=== PATIENT | female | born 1965 | race Caucasian/White ===

== ENCOUNTER 2019-09-10 00:14 | Outpatient (CLI) | payer BC, SELFPAY ==
[2019-09-10 17:31] LABS: SARS-CoV-2 RNA PCR Negative
== END 2019-09-10 00:15 | disposition home or self-care (01) ==
LOC: ANHCOVIDDT 00:15
PROVIDERS: PCP Family Medicine; Visit Provider Plastic Surgery
DX: Z01.812 Encounter for preprocedural laboratory examination (principal); Z20.828 Contact with and (suspected) exposure to other viral communicable diseases
CPT/HCPCS: 87635; C9803; U0003

== ENCOUNTER 2019-09-12 01:32 | Day surgery (SDC) | payer BC, SELFPAY ==
[2019-09-03 11:02] VITALS: BMI 23.9
--- NOTE | 2019-09-11 23:23 | HP_ITS ---
DATE OF SERVICE: 09/12/2019 PREOPERATIVE DIAGNOSIS: Basal cell carcinoma of the filipe left upper forehead. HISTORY: The 54-year-old patient, presented in April of this year with a neoplasm on the left upper forehead. A biopsy was performed on 04/26/2019 indicating a basal cell carcinoma, nodular type. This sits just in front of the hairline on the left upper forehead. It was a 2 mm mass, pebbly in appearance and orangey. It appeared that there was surrounding advancing edge of basal cell carcinoma, perhaps a centimeter or more across. We discussed excision of this and her surgery has been delayed through the coronavirus. She is coming today for excision of this. She will require local anesthetic at her request. Frozen section will be obtained and she may require a local tissue advancement and skin graft as mentioned. She is aware that possible complications could include numbness in part of her scalp, infection, wound dehiscence, delayed healing, and unsightly scarring. PAST MEDICAL HISTORY: She has had a skin cancer removed from her left cheek by me in 2019 already. ALLERGIES: SHE HAS AN ALLERGY TO SULFA. MEDICATIONS: Her current medicines include: 1. Levbid. 2. Align. 3. Claritin. PRIOR SURGERIES: Include partial thyroidectomy in 1989 or so. She has had 2 births, hysterectomy, and cholecystectomy. She is not aware of other chronic ailments. She is a nonsmoker. REVIEW OF SYSTEMS: She has had some other cancer than skin cancer. She has trouble with dry eyes. FAMILY HISTORY: Noncontributory. SOCIAL HISTORY: She lives in [place]. 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 PHYSICAL EXAMINATION: GENERAL: She is a pleasant, cooperative lady, in no distress. She is 5 feet 9 inches, weighs 162 pounds. HEENT: Reveals the site under question on the right upper forehead at the hairline and a surgical scar on her left cheek. CHEST: Clear to auscultation. HEART: Regular rate and rhythm by palpation. ABDOMEN: Soft, nontender. EXTREMITIES: Normal. ASSESSMENT: Basal cell carcinoma of the left upper forehead. PLAN: Excision with frozen section under local anesthetic. D I MT: Yunier CLAY
--- NOTE | 2019-09-12 07:32 | WPDHPUPDATE1 ---
History and Physical Update Update Date/Time: 09/12/19 07:32 History and Physical has been reviewed, including an updated exam of the patient. There are NO changes in the patient's condition. Risks, benefits, and alternatives have been discussed and questions answered. Patient agrees to proceed with procedure.
--- NOTE | 2019-09-12 09:07 | P.PNAN_ITS ---
Anes - Initial Pre Proc Eval Procedure: Operation Date: 09/12/19 11:00 Proposed Procedures p Excision Basal Cell Carcinoma Left Upper Forehead With Frozen Section - Mikey Lu MD Date/Time: 09/12/19 09:07 Surgeon: Mikey Lu MD Pre Op Diagnosis: BCC Left Upper Forehead Patient Data Age: 54 Gender: F Height: 1.75 m Weight: 73.48 kg Allergies Allergy/AdvReac Type Severity Reaction Status Date / Time Sulfa (Sulfonamide Allergy Unknown Hives Verified 09/03/19 11:02 Antibiotics) Home Medications Medication Instructions Recorded Confirmed Type Probiotic Blend 1 cap PO DAILY 04/03/19 09/12/19 History loratadine [Claritin] 10 mg PO DAILY 04/03/19 09/12/19 History magnesium 250 mg PO DAILY 09/03/19 09/12/19 History omega 8-cyl-enh-fish oil [[place]-3] 1 cap PO DAILY 09/03/19 09/12/19 History Patient hx anesthesia problems: none Family hx anesthesia problems: none PMFSH Past Medical History Medical History (Updated 09/12/19 @ 09:08 by Lenny Briceno MD) IBS (irritable bowel syndrome) Family History Family History (Updated 08/23/16 @ 09:07 by DOCTOR UNKNOWN) Mother Carcinoma of colon Family history of primary malignant neoplasm of liver Family history of malignant neoplasm of breast in first degree relative Father Family history of emphysema Grandparent Diabetes mellitus Social History Social History Smoking status: Former smoker Second hand tobacco smoke exposure: No Alcohol intake: current Anes - Eval Final PreProcedure Day of Procedure 09/12/19 09:07 Patient weight: normal Heart: regular rate and rhythm Lungs: clear to auscultation and normal air movement Airway: Mallampati scale class II Neurological: alert and oriented Last oral intake: >/= 8 hours ASA classification: II Emergent: no Anesthetic plan: proceed Anesthesia type and monitoring: general GIVS and LMA Informed Consent: The patient's anesthetic plan and its attendant risks and benefits were discussed with the patient/family/POA. Questions were solicited and answers provided to the satisfaction of the patient/family/POA.
--- NOTE | 2019-09-12 09:23 | ECG_ITS ---
Measurements Intervals [place] Rate: 68 P: 84 DE: 177 QRS: 53 QRSD: 84 T: 60 QT: 375 QTc: 401 Interpretive Statements SINUS RHYTHM INCOMPLETE RIGHT BUNDLE BRANCH BLOCK BORDERLINE ECG Electronically Signed On 09-12-2019 10:10:32 CDT by Jordy Vale D.O.
[2019-09-12 09:51] VITALS: BP 112/55; PULSE 66; RESP 14; TEMP 36.6; O2SAT 100; BMI 23.8
[2019-09-12] MEDS: LACTATED RINGERS 1,000 ML 30 ML IV CONT (09:54)
[2019-09-12] MEDS: LIDO 1%/EPINEPHRINE 1:100,000 20 ML VIAL INFILTRATE (11:49)
[2019-09-12] MEDS: BACITRACIN OINTMENT 15 GM TUBE 1 APPLIC TOPICAL (11:49)
--- NOTE | 2019-09-12 12:26 | SUR.OPER ---
Frozen section dropped of in pathology by KERVIN Nye at 1224 given to Boaz.
--- NOTE | 2019-09-12 13:02 | SUR.OPER ---
second frozen section delivered to [facility] at approx. 1300
--- NOTE | 2019-09-12 13:44 | SUR.OPER ---
EBL:10cc
--- NOTE | 2019-09-12 13:46 | PM.OP ---
Procedure Note - Brief Procedure Note - Brief Date of procedure: 09/12/19 Pre-op diagnosis: BCC Left Upper Forehead Post-op diagnosis: same Procedure performed: 2.0 cm excision with FS x2 and complex repair. Anesthesia: MAC Surgeon: Mikey Lu MD Estimated blood loss (mL): 5 Drains: No Packing: No Pathology: yes Complications: No immediate complications Condition: stable Disposition: same day
[2019-09-12 13:50] VITALS: BP 93/47; PULSE 56; RESP 16; TEMP 36.2; O2SAT 100
--- NOTE | 2019-09-12 13:54 | PM.PROC ---
Procedure Note - Detailed Date of procedure: 09/12/19 Pre-op diagnosis: BCC Left Upper Forehead Basal cell carcinoma of the left upper forehead Procedure performed: 2 cm excision of basal cell carcinoma of the left upper forehead with frozen section x2 and complex repair 4 cm Description of procedure: The patient was marked for the operative site while she was in the holding area. She was wheeled around to the operating room and placed supine on the operating table. A time-out was held and confirmed. She was given IV sedation and the Face was prepped and draped in usual fashion. The site was examined and locally infiltrated with 1% lidocaine with epinephrine. The margins were indistinct though there was a central pink mass. An excision was carried out around the pink mass. The most superior aspect was marked for 12:00 o'clock and the specimen was sent to pathology for frozen section. The pathologist revealed that the 3 6 and 12:00 p.m. margins were positive. An additional circumferential excision was carried out with a width of approximately 3 mm. The most superior aspect was again marked with a suture. Specimen sent to pathology. Pathologist revealed margins were free. The wound was undermined extensively in all directions allowing unrestrained coaptation of the wound margins the closure was accomplished with buried 4-0 Vicryl sutures. The skin was closed with a running 6 0 nylon. Tolerated well. She has instructions in wound care and follow-up. She has a prescription for hydrocodone 6. Surgeon: Mikey Lu MD
[2019-09-12 14:20] VITALS: BP 98/49; PULSE 58
[2019-09-12 14:35] VITALS: BP 93/42; PULSE 67
== END 2019-09-12 14:53 | disposition home or self-care (01) ==
PROVIDERS: PCP Family Medicine; Visit Provider Plastic Surgery
PROC: (CPT 11642; principal; 2019-09-12 11:00)
DX: C44.319 Basal cell carcinoma of skin of other parts of face (principal); K58.9 Irritable bowel syndrome, unspecified; Z87.891 Personal history of nicotine dependence
CPT/HCPCS: 11642; 13132; 88305; 88331; 93005; A9270; J2250; J2405; J2704; J3010; J7120

== ENCOUNTER → 2019-11-01 15:48 | Outpatient (CLI) | payer BC, SELFPAY ==
--- NOTE | ~2019-11-01 | US_ITS ---
EXAMINATION: US thyroid DATE: 11/01/2019 16:13 INDICATION: Thyroid nodule. TECHNIQUE: Multiple ultrasound images of the thyroid were obtained. COMPARISON: None. FINDINGS: The right thyroid lobe measures 5.4 x 1.8 x 2.1 cm. The left thyroid lobe is absent. In the right th yroid lobe, there is a 2.0 cm solid, hypoechoic, [id number] nodule with ill-defined margin witho ut echogenic foci (TI-RADS TR4). In the right thyroid lobe, there is an 8 mm solid, hypoechoic, wider -than-tall nodule with ill-defined margin without echogenic foci (TR4). In the right thyroid lobe, th ere is an 8 mm solid, hypoechoic, [id number]-[id number]-aamb nodule with ill-defined margin without echogenic fo ci (TR4). IMPRESSION: 1. Thyroid nodules. Consider ultrasound-guided fine needle aspiration of the 2.0 cm right thyroid nod ule. Reviewed, dictated and finalized at location A. IMPRESSION: 1. Thyroid nodules. Consider ultrasound-guided fine needle aspiration of the 2. 0 cm right thyroid nodule.
== END ==
PROVIDERS: PCP Family Medicine; Visit Provider Family Medicine
DX: E04.2 Nontoxic multinodular goiter (principal)
CPT/HCPCS: 76536

== ENCOUNTER 2019-11-13 10:43 | Outpatient (CLI) | payer BC, SELFPAY ==
--- NOTE | ~2019-11-13 | US_ITS ---
EXAMINATION: US FNA w image guidance DATE: 11/13/2019 11:23 INDICATION: Right thyroid nodule. TECHNIQUE: The procedure and its benefits, risks, and benefits were discussed with the patient. Risks specifical ly discussed included bleeding. The patient verbalized understanding of the risks and agreed to proce ed. The neck was prepped and draped in the usual sterile manner. 1% lidocaine was used for local ane sthesia. 5 passes were made with a 25G needle into the lesion. Appropriate needle location was docu mented with continuous sonographic guidance. There were no immediate complications. The patient unde rstood to call the ordering physician for results after a week and a half and verbalized that underst anding. FINDINGS: Grayscale ultrasound images demonstrate needles advanced into a 2.0 cm nodule in right thyroid lobe f or biopsy. IMPRESSION: 1. Ultrasound-guided fine needle aspiration of a right thyroid nodule. Reviewed, dictated and finalized at location A.
== END 2019-11-13 10:44 | disposition home or self-care (01) ==
PROVIDERS: PCP Family Medicine; Visit Provider Family Medicine
DX: E07.9 Disorder of thyroid, unspecified (principal)
CPT/HCPCS: 10005; 88173; 88305

== ENCOUNTER → 2021-11-15 10:02 | Outpatient (CLI) | payer BC, SELFPAY ==
--- NOTE | ~2021-11-15 | CT_ITS ---
EXAMINATION: CT soft tissue neck w con DATE: 11/15/2021 10:43 INDICATION: Left neck swelling. Globus sensation. Neck stiffness. Left arm paresthesia. TECHNIQUE: Computed tomography (CT) of the neck was performed with 75 mL Omnipaque-350 intravenous co ntrast. Automated exposure control and iterative reconstruction technique were employed. The dose-gita gth product was 411.75 mGy-cm. COMPARISON: None FINDINGS: There is mild scarring at the lung apices. There is mild emphysema. There are nodules in th e thyroid measuring up to 12 mm, likely not clinically significant. Left thyroid lobe is absent. The pharynx is unremarkable. There is moderate cervical spondylosis. IMPRESSION: 1. No evidence of malignancy. Reviewed, dictated and finalized at location A.
== END ==
PROVIDERS: PCP Family Medicine; Visit Provider Family Medicine
DX: M43.6 Torticollis (principal); R20.2 Paresthesia of skin; R09.89 Other specified symptoms and signs involving the circulatory and respiratory systems; E04.1 Nontoxic single thyroid nodule
CPT/HCPCS: 70491; Q9967

== ENCOUNTER 2021-12-03 09:30 | Outpatient (CLI) | payer BC, SELFPAY ==
--- NOTE | ~2021-12-03 | US_ITS ---
EXAMINATION: US thyroid DATE: 12/03/2021 11:37 INDICATION: Thyroid nodules TECHNIQUE: Multiple ultrasound images of the thyroid were obtained. COMPARISON: 11/01/2019 FINDINGS: The left thyroid lobe and isthmus are not visualized and reportedly surgically absent. Right thyroid lobe measures 5.9 x 1.7 x 2.3 cm. No significant change in a hypervascular 2.2 cm TI-RADS 3 solid, wi melody than tall isoechoic nodule with smooth margins and without echogenic foci in the right thyroid lo be previously measuring 2.0 cm and with intervening biopsy demonstrating consistent with benign foll icular nodule. There are 2 additional solid isoechoic TI-RADS 3 nodules in the right thyroid lesion measuring 9 mm in maximal diameter and a solid more hypoechoic TI-RADS 4 nodules in the right thyroid measuring 1 cm for which annual ultrasound would be recommended. There is normal echotexture, echoge nicity and vascular flow throughout the surrounding thyroid gland. IMPRESSION: 1. No interval change in several right thyroid nodules, the largest with intervening biopsy on 020 demonstrating benign pathology. Given the prior benign biopsy and lack of significant interval ch russell the planned biopsy was deferred. Would recommend additional annual ultrasound follow-up. Reviewed, dictated and finalized at location A. IMPRESSION: 1. No interval change in several right thyroid nodules, the largest with interv ening biopsy on 11/13/2019 demonstrating benign pathology. Given the prior benig n biopsy and lack of significant interval change the planned biopsy was deferre d. Would recommend additional annual ultrasound follow-up.
== END 2021-12-03 09:31 | disposition home or self-care (01) ==
PROVIDERS: PCP Family Medicine; Visit Provider Family Medicine
DX: M43.6 Torticollis (principal); R20.2 Paresthesia of skin; R09.89 Other specified symptoms and signs involving the circulatory and respiratory systems; E04.1 Nontoxic single thyroid nodule
CPT/HCPCS: 76536